=== PATIENT | male | born 1950 | race African-American/Black ===

== ENCOUNTER 2018-05-12 11:27 | Inpatient (IN) | payer MEDICARE, MEDICAID ==
[~2018-05-12] VITALS: Ht 160 cm; Wt 70.8 kg
[2018-05-12 14:10] LABS: BASOPHILS % 0.7 % (0.0-2.0); EOSINOPHILS % 4.9 % (0.0-5.0); HEMATOCRIT. 37.1 % (42.0-52.0); HEMOGLOBIN. 11.8 g/dL (14.0-18.0); LYMPHOCYTES % 32.9 % (20.0-50.0); MEAN CORPUSCULAR VOLUME 72.1 fL (80.0-94.0); MEAN PLATELET VOLUME 9.6 fl (7.4-10.4); MONOCYTES % 8.5 % (2.0-8.0); PLATELET 158 x1000/uL (130-400); RED BLOOD CELL COUNT 5.14 mill/uL (4.7-6.1); RED CELL DISTRIBUTION WIDTH 15.6 % (11.6-14.6)
[2018-05-12 14:12] LABS: CHLORIDE 104 mEq/L (98-107)
[2018-05-12 18:34] LABS: CLARITY URINE CLEAR (CLEAR); COLOR URINE YELLOW (YELLOW); KETONES URINE NEGATIVE (NEGATIVE); LEUKOCYTE ESTERASE URINE NEGATIVE (NEGATIVE); NITRITE URINE NEGATIVE (NEGATIVE); OCCULT BLOOD URINE 1+ (NEGATIVE); PH URINE 5.5 (4.5-8.0); PROTEIN URINE NEGATIVE (NEGATIVE); UROBILINOGEN URINE 0.2 E.U./dL (0.2-1.0)
[2018-05-12 18:45] LABS: *AMPHETAMINES SCREEN URINE NEGATIVE (NEGATIVE); *BARBITURATES SCREEN URINE PRESUMTIVE POSITIVE (NEGATIVE); *BENZODIAZEPINES SCREEN URINE NEGATIVE (NEGATIVE); *COCAINE SCREEN URINE NEGATIVE (NEGATIVE)
[2018-05-12 18:46] LABS: CANNABINOID URINE SCREEN NEGATIVE (NEGATIVE); METHADONE URINE SCREEN NEGATIVE (NEGATIVE); OPIATES URINE SCREEN NEGATIVE (NEGATIVE); PHENCYCLIDINE URINE SCREEN NEGATIVE (NEGATIVE)
[2018-05-12 20:00] VITALS: BP 148/79
[2018-05-12 23:00] VITALS: BP 148/79
[2018-05-13] VITALS: BP 144/81
[2018-05-13] MEDS ORDERED: GUAIFENESIN 200MG/10ML SUGAR FREE UDC PO PRN (00:30)
[2018-05-13] MEDS ORDERED: ACETAMINOPHEN 325MG TABLET PO PRN (00:30)
[2018-05-13] MEDS ORDERED: ACETAMINOPHEN 650MG/20.3ML UDC GT PRN (00:30)
[2018-05-13] MEDS ORDERED: HYDROCODONE/ACETAMINOPHEN 5/325MG TABLET PO PRN (00:30)
[2018-05-13] MEDS ORDERED: MAGNESIUM/ALUMINUM HYDROXIDE/SIMETHICONE 30ML UDC PO PRN ×2 (00:30)
[2018-05-13] MEDS ORDERED: DOCUSATE SODIUM 100MG CAPSULE PO PRN (00:30)
[2018-05-13] MEDS ORDERED: NA PHOS,M-B/NA PHOS,DI-BA ENEMA 118ML PR PRN (00:30)
[2018-05-13] MEDS ORDERED: ACETAMINOPHEN 650MG SUPP PR PRN (00:30)
[2018-05-13] MEDS ORDERED: DIPHENHYDRAMINE 50MG/ML VIAL IV PRN (00:30)
[2018-05-13] MEDS ORDERED: CLONIDINE 0.1MG TABLET PO PRN (00:30)
[2018-05-13] MEDS ORDERED: ONDANSETRON HCL 4MG/2ML INJ IV PRN (00:30)
[2018-05-13] MEDS ORDERED: IPRATROPIUM/ALBUTEROL 0.5-3(2.5)MG/3ML NEB INH PRN (00:30)
[2018-05-13] MEDS ORDERED: HYDROCODONE/ACETAMINOPHEN 10/325MG TABLET PO PRN (00:30)
[2018-05-13] MEDS ORDERED: PSYL540P PO (01:13)
[2018-05-13] MEDS ORDERED: LEVO50TA MT (01:13)
[2018-05-13] MEDS ORDERED: LORA10CA MT (01:13)
[2018-05-13] MEDS ORDERED: PHEN32.43 MT (01:13)
[2018-05-13] MEDS ORDERED: DIVA250T4 MT (01:13)
[2018-05-13] MEDS ORDERED: ARIP2TAB3 MT (01:13)
[2018-05-13] MEDS ORDERED: SERT100T MT (01:13)
[2018-05-13] MEDS ORDERED: CALC-586 MT (01:13)
[2018-05-13] MEDS ORDERED: BIMA2.5D4 EACHEYE (01:13)
[2018-05-13] MEDS ORDERED: FLUT9.9S BOTHNSTRLS (01:13)
[2018-05-13] MEDS ORDERED: BACL20TA MT (01:13)
[2018-05-13] MEDS ORDERED: MULT-1116 MT (01:13)
[2018-05-13] MEDS ORDERED: BACL-141 MT (01:13)
[2018-05-13] MEDS ORDERED: DOCU-138 MT (01:13)
[2018-05-13 04:00] VITALS: BP 118/55
[2018-05-13] MEDS ORDERED: FUROSEMIDE 40MG/4ML VIAL IVP SCH (04:00)
[2018-05-13] MEDS: SODIUM CHLORIDE 0.9% INJ 3ML FLUSH IVF SCH ×3 (06:05→21:08)
[2018-05-13 07:40] LABS: BASOPHILS % 0.7 % (0.0-2.0); EOSINOPHILS % 2.9 % (0.0-5.0); HEMATOCRIT. 37.7 % (42.0-52.0); HEMOGLOBIN. 12.2 g/dL (14.0-18.0); LYMPHOCYTES % 32.2 % (20.0-50.0); MEAN CORPUSCULAR HEMOGLOBIN 23.4 pg (28.0-32.0); MEAN CORPUSCULAR VOLUME 72.4 fL (80.0-94.0); MEAN PLATELET VOLUME 9.9 fl (7.4-10.4); NEUTROPHILS % 52.2 % (40.0-76.0); PLATELET 163 x1000/uL (130-400); RED CELL DISTRIBUTION WIDTH 15.7 % (11.6-14.6)
[2018-05-13 08:19] LABS: CHLORIDE 108 mEq/L (98-107)
[2018-05-13 08:22] LABS: LDL CHOLESTEROL 74 mg/dL (5-100)
[2018-05-13 08:23] LABS: HDL CHOLESTEROL 71 mg/dL (40-59)
[2018-05-13] MEDS: ENOXAPARIN 40MG/0.4ML SYR SUBCUT SCH (08:30)
[2018-05-13 08:38] VITALS: BP 123/63
[2018-05-13] MEDS ORDERED: POTASSIUM CHLORIDE 20MEQ TABLET SR PO NR ×2 (09:00→10:00)
[2018-05-13] MEDS ORDERED: DEXTROSE 5% WATER 1,000 ML IV SCH (09:45)
[2018-05-13 12:33] VITALS: BP 123/64
[2018-05-13] MEDS: FINASTERIDE 5MG TABLET PO SCH (14:29)
[2018-05-13] MEDS: TAMSULOSIN HCL 0.4MG SR CAPSULE PO SCH (14:29)
[2018-05-13 16:33] VITALS: BP 123/71
[2018-05-13] MEDS ORDERED: MEDICATION NOT ON FORMULARY EA (Loratadine (Claritin) 1 CAP) MT SCH (19:00)
[2018-05-13] MEDS ORDERED: PHENOBARBITAL MT SCH (19:00)
[2018-05-13] MEDS ORDERED: MEDICATION NOT ON FORMULARY EA (Fluticasone Propionate (Flonase Allergy Relief) 2 SPR) BOTHNSTRLS SCH (19:00)
[2018-05-13] MEDS ORDERED: MEDICATION NOT ON FORMULARY EA (Docusate Sodium (Colace) 1 CAP) MT SCH (19:00)
[2018-05-13] MEDS ORDERED: MEDICATION NOT ON FORMULARY EA (Baclofen 1 TAB) MT SCH ×2 (19:00→21:00)
[2018-05-13] MEDS ORDERED: CALCIUM CARBONATE MT SCH (19:00)
[2018-05-13] MEDS ORDERED: MEDICATION NOT ON FORMULARY EA (Multivitamin (Multi-Vitamin Daily) 1 TAB) MT SCH (19:00)
[2018-05-13 20:00] VITALS: BP 115/48
[2018-05-13] MEDS: CALCIUM CARBONATE 500MG TABLET CHEW PO SCH (20:53)
[2018-05-13] MEDS: LORATADINE 10MG TABLET PO SCH (20:53)
[2018-05-13] MEDS: SERTRALINE HCL 100MG TABLET PO SCH (20:53)
[2018-05-13] MEDS: PHENOBARBITAL 30 MG TABLET PO SCH (20:53)
[2018-05-13] MEDS: DIVALPROEX SODIUM 250MG DR TABLET PO SCH (20:53)
[2018-05-13] MEDS: DOCUSATE SODIUM 100MG CAPSULE PO SCH (20:54)
[2018-05-13] MEDS ORDERED: POTASSIUM CHLORIDE INJ 40 MEQ in DEXTROSE 5% WATER 1,000 ML IV SCH (21:00)
[2018-05-13] MEDS ORDERED: LATANOPROST 0.005% OPHTH DROPS 2.5ML BOTHEYE SCH (21:00)
[2018-05-13] MEDS ORDERED: BACLOFEN 20MG TABLET PO SCH (21:00)
[2018-05-13] MEDS ORDERED: MEDICATION NOT ON FORMULARY EA (Bimatoprost (Lumigan) 1 DROP) EACHEYE SCH (21:00)
[2018-05-13] MEDS: MULTIVITAMINS,THER W-MINERALS TABLET PO SCH (21:06)
[2018-05-13] MEDS: ARIPIPRAZOLE 2MG TABLET PO SCH (21:06)
[2018-05-13] MEDS: FLUTICASONE PROPIONATE 50MCG/SPRAY BOTTLE BOTHNSTRLS SCH (21:07)
[2018-05-13] MEDS: LEVOTHYROXINE SODIUM 50MCG TABLET PO SCH (21:17)
[2018-05-14] VITALS: BP 118/46
[2018-05-14] MEDS ORDERED: POTASSIUM CHLORIDE 20MEQ TABLET SR PO PRN
[2018-05-14 04:00] VITALS: BP 114/62
[2018-05-14] MEDS: LEVOTHYROXINE SODIUM 50MCG TABLET PO SCH (06:15)
[2018-05-14] MEDS: SODIUM CHLORIDE 0.9% INJ 3ML FLUSH IVF SCH (06:15)
[2018-05-14 07:00] LABS: BASOPHILS % 0.5 % (0.0-2.0); EOSINOPHILS % 6.2 % (0.0-5.0); HEMATOCRIT. 33.5 % (42.0-52.0); HEMOGLOBIN. 10.9 g/dL (14.0-18.0); LYMPHOCYTES % 40.2 % (20.0-50.0); MEAN CORPUSCULAR HEMOGLOBIN 23.5 pg (28.0-32.0); MEAN CORPUSCULAR VOLUME 71.8 fL (80.0-94.0); MONOCYTES % 10.5 % (2.0-8.0); NEUTROPHILS % 42.6 % (40.0-76.0); PLATELET 134 x1000/uL (130-400); RED BLOOD CELL COUNT 4.66 mill/uL (4.7-6.1); RED CELL DISTRIBUTION WIDTH 15.5 % (11.6-14.6)
[2018-05-14 07:03] LABS: CHLORIDE 103 mEq/L (98-107)
[2018-05-14 07:11] LABS: PHOSPHORUS 2.9 mg/dL (2.5-4.9)
[2018-05-14 08:00] VITALS: BP 118/73
[2018-05-14] MEDS: DIVALPROEX SODIUM 250MG DR TABLET PO SCH ×2 (08:53→12:04)
[2018-05-14] MEDS: PHENOBARBITAL 30 MG TABLET PO SCH (08:53)
[2018-05-14] MEDS: TAMSULOSIN HCL 0.4MG SR CAPSULE PO SCH (08:53)
[2018-05-14] MEDS: CALCIUM CARBONATE 500MG TABLET CHEW PO SCH (08:53)
[2018-05-14] MEDS: ARIPIPRAZOLE 2MG TABLET PO SCH (08:53)
[2018-05-14] MEDS: LORATADINE 10MG TABLET PO SCH (08:53)
[2018-05-14] MEDS: FLUTICASONE PROPIONATE 50MCG/SPRAY BOTTLE BOTHNSTRLS SCH (08:54)
[2018-05-14] MEDS: FINASTERIDE 5MG TABLET PO SCH (08:54)
[2018-05-14] MEDS: MULTIVITAMINS,THER W-MINERALS TABLET PO SCH (08:54)
[2018-05-14] MEDS: ENOXAPARIN 40MG/0.4ML SYR SUBCUT SCH (08:54)
[2018-05-14] MEDS: SERTRALINE HCL 100MG TABLET PO SCH (08:54)
[2018-05-14] MEDS: DOCUSATE SODIUM 100MG CAPSULE PO SCH (08:55)
[2018-05-14] MEDS ORDERED: BACLOFEN 10MG TABLET PO SCH (09:00)
[2018-05-14] MEDS ORDERED: POTASSIUM CHLORIDE 20MEQ TABLET SR PO NR (11:00)
[2018-05-14 12:00] VITALS: BP 135/60
[2018-05-14 13:04] LABS: TOTAL IRON BINDING CAPACITY 183 ug/dL (250-450)
[2018-05-14 14:12] VITALS: BP 135/60
[2018-05-14 16:00] VITALS: BP 121/71
[2018-05-14] MEDS ORDERED: POLYETHYLENE GLYCOL 3350 (17GM) 1 DOSE PACK PO SCH (21:00)
[2018-05-14] MEDS ORDERED: TAMSULOSIN HCL 0.4MG SR CAPSULE PO SCH (21:00)
== END 2018-05-14 17:38 | disposition home or self-care (01) | DRG 695 ==
LOC: ER 13:13 → EDBEDREQ 17:02 → 6WST 19:39 → EDBEDREQ 19:44 → EDBEDREQTM 19:44 → ENRESERV 20:36
PROVIDERS: ADMIT Family Medicine; ATTEND Family Medicine
PROC: 0T9B70Z Drainage of Bladder with Drainage Device, Via Natural or Artificial Opening (ICD-10-PCS; principal; 2018-05-12)
DX: R33.9 Retention of urine, unspecified (principal); E43 Unspecified severe protein-calorie malnutrition; E87.0 Hyperosmolality and hypernatremia; E87.1 Hypo-osmolality and hyponatremia; E87.3 Alkalosis; I69.354 Hemiplegia and hemiparesis following cerebral infarction affecting left non-dominant side; D50.9 Iron deficiency anemia, unspecified; D72.1 Eosinophilia; E03.9 Hypothyroidism, unspecified; E86.0 Dehydration; E87.6 Hypokalemia; G40.909 Epilepsy, unspecified, not intractable, without status epilepticus; I10 Essential (primary) hypertension; M19.90 Unspecified osteoarthritis, unspecified site; K21.9 Gastro-esophageal reflux disease without esophagitis; K59.00 Constipation, unspecified; Z68.27 Body mass index [BMI] 27.0-27.9, adult; Z99.3 Dependence on wheelchair; Z87.828 Personal history of other (healed) physical injury and trauma; Z79.899 Other long term (current) drug therapy
CPT/HCPCS: 36415; 71045; 74176; 80053; 80061; 80305; 81003; 83036; 83540; 83550; 83735; 83880; 83930; 83935; 84100; 84443; 84484; 85025; 87040; 87086; 93005; 93970; 99285; J1650; J1940; J3480; J7060; J7070; A4315